=== PATIENT | male | born 1970 | race Two or more races ===

== ENCOUNTER 2020-11-25 09:43 | Emergency (ER) | payer SELFPAY ==
[2020-11-25 09:58] VITALS: BP 143/90; PULSE 71; RESP 18; TEMP 36.7; O2SAT 98; BMI 30.8
[2020-11-25 10:07] VITALS: RESP 18
--- NOTE | 2020-11-25 10:16 | US_ITS ---
EXAMINATION: US VENOUS ULTRASOUND WITH DOPPLER LOWER EXTREMITY, RIGHT CLINICAL INFORMATION: Right calf pain. COMPARISON: None TECHNIQUE: Ultrasound of the deep veins is performed from the hip to the calf with compression sonography and color and pulse Doppler assessment. Spectral analysis with color-flow imaging is performed. FINDINGS: There is normal venous compression and respiratory variation and augmented flow. The visualized common femoral vein, superficial femoral vein, profunda femoral vein, popliteal vein, and the trifurcation region shows no evidence of deep venous thrombosis. There is no significant popliteal fossa cyst. If the patient's symptoms persist, followup ultrasound in 5 days 7 days might be of value to exclude proximal propagation from a non-visualized calf vein. US/US venous duplex LE RT IMPRESSION: No DVT demonstrated in the right lower extremity.
[2020-11-25 10:27] LABS: Basophils Percent Auto 0.7 % (0-2); Eosinophils Absolute Auto 0.3 X10*3/uL (0.0-0.4); Eosinophils Percent Auto 4.5 % (0-4); Hematocrit 42.9 % (42-52); Hemoglobin 14.3 g/dl (14.0-18.0); Imm Gran Abs Auto 0.02 X10*3/uL (0.00-0.03); Imm Gran Pct Auto 0.3 % (0.0-0.4); Lymphocytes Absolute Auto 1.8 X10*3/uL (1.2-4.9); Lymphocytes Percent Auto 30.1 % (20-40); MANUAL DIFF FLAG NO; Mean Corpuscular HGB Conc 33.3 g/dl (31.0-36.0); Mean Corpuscular Hemoglobin 29.7 pg (27.0-33.0); Mean Platelet Volume 8.7 fL (9.4-12.4); Monocytes Absolute Auto 0.6 X10*3/uL (0.1-1.2); Monocytes Percent Auto 9.6 % (2-11); Neutrophils Absolute Auto 3.3 X10*3/uL (2.0-8.3); Neutrophils Percent Auto 54.8 % (45-73); Platelet Count 197 X10*3/uL (160-400); Red Blood Count 4.82 X10*6/uL (4.60-5.80); Red Cell Distribution Width 12.5 % (11.0-16.0); White Blood Count 5.9 X10*3/uL (4.8-10.8)
[2020-11-25 10:36] LABS: Prothrombin Time 11.9 SEC (10.8-13.0)
[2020-11-25 11:04] LABS: Anion Gap 13 (12-20); Blood Urea Nitrogen 18 mg/dL (9-16); Carbon Dioxide 26 mmol/L (22-29); Chloride 101 mmol/L (96-108); Creatinine Clr Calc Pharmacy 105.7; Estimated Glomerular Filt Rate > 60; Glucose Random 100 mg/dL (60-115); Potassium 4.4 mmol/l (3.3-5.1); Sodium 136 mmol/L (135-145)
--- NOTE | 2020-11-25 11:09 | ED.EXTPRO ---
HPI - Extremity Problem General Chief complaint: Extremity Problem Stated complaint: ?blood clot Time Seen by Provider: 11/25/20 09:52 Source: patient Mode of arrival: ambulatory Limitations: no limitations History of Present Illness HPI Narrative: 50yoM c PMHx of HTN and HLD presenting to the ED c c/o right calf pain for the past few days worse today. Denies any injuries. Denies recent travel, denies recent surgery or immobilization, denies estrogen uses, denies IV drug usage, denies hypercoagulation disorder. Denies any dizziness, headaches, nausea/vomiting, changes in vision, chest pain or shortness of breath, orthopnea or dyspnea on exertion or any other symptoms complaints or concerns at this time. Related Data Allergies Allergy/AdvReac Type Severity Reaction Status Date / Time No Known Allergies Allergy Unverified 08/12/20 15:15 [No Known Allergies*] Review of Systems Review of Systems: Constitutional : No Fever, No Chills ENT/Mouth : No Ear Pain, No Hoarseness, No sore throat Eyes: No Eye Pain, No Swelling, No Redness, No Foreign Body Cardiovascular : No Chest Pain, No SOB Respiratory : No Cough, No Dyspnea Gastrointestinal : No Nausea, No Vomiting, No Diarrhea, No abdominal Pain Genitourinary : No Dysuria, No Hematuria Musculoskeletal : + joint pain, No Myalgias, No Joint Swelling Skin : No Skin lacerations, No rash Neuro : No Weakness, No Numbness, No Paresthesias, No Loss of Consciousness, No Dizziness, No Headache Psych : No Anxiety/Panic, No Depression Heme/Lymph: no easy bruising, no Lymphadenopathy Endocrine : No Polyuria, No Polydipsia Yes all other systems are reviewed and are negative FOR[facility]LY [facility], [facility] Past Medical History Attestation statement: The following information was validated with the patient. Medical History High cholesterol Hypertension Social History Social History Advance Directives: No Advance Directives Information Provided: No Physical Exam Vital Signs: Vital Signs: Last Vital Signs Temp 98.0 F 11/25/20 09:58 Pulse 71 11/25/20 09:58 Resp 18 11/25/20 10:07 BP 143/90 H 12/31/20 09:58 Pulse Ox 98 11/25/20 09:58 Body Mass Index 30.8 vital signs have been reviewed as normal and appeared to be correct. Blood pressure normal. Heart rate normal. Respiration rate normal. Temperature normal. Oxygen saturation normal. Appearance: Alert. Oriented X3. No acute distress. Head: Normal external exam. Normocephalic. Eyes: PERRLA. EOMI. Conjunctiva and sclera normal. Eyelids normal. ENT: Pharynx normal. Uvula midline. Moist mucous membranes. Neck: Normal inspection. Neck supple. FROM. No adenopathy. No meningeal signs. CVS: Normal heart rate and rhythm. Heart sound normal. No murmurs noted. Pulses normal throughout. Respiratory: No respiratory distress. Painless inspiration. Breath sounds normal. No wheezes/rales/rhonchi noted. Chest nontender. No accessory muscle usage noted or decreased air movement noted. Back: Full range of motion noted. Skin: Skin warm and dry. Normal skin color. Normal skin turgor. No rashes/lesions/lacerations noted. Extremities: Patient has right calf tenderness with varicose veins noted otherwise No lower extremity edema. Left calf nontender. Extremities exhibit normal range of motion. Extremities otherwise nontender. Neuro: Oriented X 3. No motor deficit. No sensory deficit. Reflexes normal. Course Course Course Narrative: 10:16am - 50yoM c PMHx of HTN and HLD presenting to the ED c c/o right calf pain for the past few days worse today. - Concern for DVT vs varicose vein vs muscular strain - Plan: labs, US of RLE and re-evaluate Reevaluation(s) Reevaluation #1: - all labs within normal limits. Ultrasound of right lower extremity negative for any DVT or any other acute processes. I printed out and gave a copy to the patient instructed him to return if any new or worsening symptoms and if symptoms persist follow-up ultrasound in 5-7 days. Patient understands agrees with this plan. Patient declined Anaprox and Flexeril reports he has some at home. Therefore instructed to follow up with primary care provider as well. Patient's and agrees the plan. Time: 11:58 [facility] - Extremity (Nontraumatic) Medical Records Attestation: I reviewed the patient's medical records. Lab Data Result diagrams: 11/25/20 10:22 11/25/20 10:22 Labs: Lab Results 11/25/20 11/25/20 11/25/20 Range/Units 10:22 10:22 10:22 WBC 5.9 (4.8-10.8) X10*3/uL RBC 4.82 (4.60-5.80) X10*6/uL Hgb 14.3 (14.0-18.0) g/dl Hct 42.9 (42-52) % MCV 89.0 (80-98) fL MCH 29.7 (27.0-33.0) pg MCHC 33.3 (31.0-36.0) g/dl RDW 12.5 (11.0-16.0) % Plt Count 197 (160-400) X10*3/uL MPV 8.7 L (9.4-12.4) fL Immature Gran % (Auto) 0.3 (0.0-0.4) % Neut % (Auto) 54.8 (45-73) % Lymph % (Auto) 30.1 (20-40) % [place] % (Auto) 9.6 (2-11) % Eos % (Auto) 4.5 H (0-4) % Baso % (Auto) 0.7 (0-2) % Lymph # (Auto) 1.8 (1.2-4.9) X10*3/uL [place] # (Auto) 0.6 (0.1-1.2) X10*3/uL Eos # (Auto) 0.3 (0.0-0.4) X10*3/uL Baso # (Auto) 0.0 (0.0-0.2) X10*3/uL Abs Immat Gran (auto) 0.02 (0.00-0.03) X10*3/uL Absolute Neuts (auto) 3.3 (2.0-8.3) X10*3/uL Absolute Nucleated RBC 0.000 (0.0-0.012) X10*3/uL Nucleated RBC % (auto) 0.0 (0.0-0.2) /100WBC PT 11.9 (10.8-13.0) SEC INR 1.0 (0.9-1.1) Sodium 136 (135-145) mmol/L Potassium 4.4 (3.3-5.1) mmol/l Chloride 101 (96-108) mmol/L Carbon Dioxide 26 (22-29) mmol/L Anion Gap 13 (12-20) BUN 18 H (9-16) mg/dL Creatinine 0.95 (0.5-1.4) mg/dL Estim Creat Clear Calc 105.7 Estimated GFR > 60 Random Glucose 100 (60-115) mg/dL Calcium 9.0 (8.4-10.2) mg/dL Imaging Data rle us: Attestation: I personally reviewed and interpreted this imaging study as follows: Radiologist's impression: FINDINGS: There is normal venous compression and respiratory variation and augmented flow. The visualized common femoral vein, superficial femoral vein, profunda femoral vein, popliteal vein, and the trifurcation region shows no evidence of deep venous thrombosis. There is no significant popliteal fossa cyst. If the patient's symptoms persist, followup ultrasound in 5 days 7 days might be of value to exclude proximal propagation from a non-visualized calf vein. US/US venous duplex LE RT IMPRESSION: No DVT demonstrated in the right lower extremity. Discharge Plan Discharge Clinical Impression: Muscle strain of right lower leg Patient Disposition: Home, Self-Care Instructions: Muscle Strain (ED) Referrals: Ginette Selby MD [Primary Care Provider] - 2 days Print Language: Maori
== END 2020-11-25 12:14 | disposition home or self-care (01) ==
PROVIDERS: Physician Assistant Medical; Emergency Provider Emergency Medicine Emergency Medical Services; PCP Internal Medicine
DX: S86.911A Strain of unspecified muscle(s) and tendon(s) at lower leg level, right leg, initial encounter (principal); R60.0 Localized edema; X58.XXXA Exposure to other specified factors, initial encounter; Y93.9 Activity, unspecified; Y92.9 Unspecified place or not applicable; Y99.9 Unspecified external cause status
CPT/HCPCS: 36415; 80048; 85025; 85610; 93971; 99284

== ENCOUNTER 2021-02-02 07:39 | Outpatient (REF) | payer OTHER, SELFPAY ==
[2021-02-02 08:51] LABS: Alanine Aminotransferase 17 U/L (0-40); Albumin Level 4.6 g/dL (3.5-5.0); Alkaline Phosphatase 70 U/L (39-117); Anion Gap 11 (12-20); Aspartate Amino Transferase 15 U/L (5-37); Bilirubin Total 0.4 mg/dL (0.0-1.0); Blood Urea Nitrogen 16 mg/dL (9-16); Calcium 9.2 mg/dL (8.4-10.2); Carbon Dioxide 28 mmol/L (22-29); Chloride 104 mmol/L (96-108); Cholesterol 184 mg/dL; Estimated Glomerular Filt Rate > 60; Glucose Random 105 mg/dL (60-115); HDL Cholesterol 39 mg/dL; LDL Cholesterol Calculated 118 mg/dl; Potassium 5.2 mmol/L (3.3-5.1); Sodium 138 mmol/L (135-145); Total Protein 7.1 g/dL (6.5-8.0); Triglycerides 137 mg/dL
== END 2021-02-02 07:40 | disposition home or self-care (01) ==
LOC: HO.LAB 07:39
PROVIDERS: PCP Internal Medicine; Visit Provider Internal Medicine
DX: E78.00 Pure hypercholesterolemia, unspecified (principal); I10 Essential (primary) hypertension; M47.22 Other spondylosis with radiculopathy, cervical region; Z68.31 Body mass index [BMI] 31.0-31.9, adult
CPT/HCPCS: 36415; 80053; 80061

== ENCOUNTER 2021-10-17 12:30 | Outpatient (REF) | payer OTHER, SELFPAY ==
[2021-10-17 13:56] LABS: MANUAL DIFF FLAG NO
[2021-10-17 14:05] LABS: Basophils Percent Auto 0.4 % (0-2); Eosinophils Absolute Auto 0.1 X10*3/uL (0.0-0.4); Eosinophils Percent Auto 1.1 % (0-4); Hematocrit 43.9 % (42.0-52.0); Hemoglobin 14.8 g/dl (14.0-18.0); Imm Gran Abs Auto 0.02 X10*3/uL (0.00-0.03); Imm Gran Pct Auto 0.4 % (0.0-0.4); Lymphocytes Absolute Auto 1.5 X10*3/uL (1.2-4.9); Lymphocytes Percent Auto 26.5 % (20-40); Mean Corpuscular HGB Conc 33.7 g/dl (31.0-36.0); Mean Corpuscular Hemoglobin 29.8 pg (27.0-33.0); Mean Corpuscular Volume 88.3 fL (80.0-98.0); Mean Platelet Volume 9.3 fL (9.4-12.4); Monocytes Absolute Auto 0.3 X10*3/uL (0.1-1.2); Monocytes Percent Auto 5.5 % (2-11); Neutrophils Absolute Auto 3.7 x10*3/uL (2.0-8.3); Neutrophils Percent Auto 66.1 % (45-73); Platelet Count 215 X10*3/uL (160-400); Red Blood Count 4.97 X10*6/uL (4.60-5.80); Red Cell Distribution Width 12.6 % (11.0-16.0); White Blood Count 5.6 X10*3/uL (4.8-10.8)
[2021-10-17 14:32] LABS: Alanine Aminotransferase 18 U/L (0-40); Albumin Level 4.6 g/dL (3.5-5.0); Alkaline Phosphatase 61 U/L (39-117); Anion Gap 13 (12-20); Aspartate Amino Transferase 15 U/L (5-37); Bilirubin Total 0.8 mg/dL (0.0-1.0); Blood Urea Nitrogen 17 mg/dL (9-16); Calcium 9.4 mg/dL (8.4-10.2); Carbon Dioxide 27 mmol/L (22-29); Chloride 103 mmol/L (96-108); Cholesterol 230 mg/dL; Estimated Glomerular Filt Rate > 60; Glucose Fasting 102 mg/dL (60-99); HDL Cholesterol 48 mg/dL; LDL Cholesterol Calculated 157 mg/dl; Potassium 4.9 mmol/L (3.3-5.1); Sodium 138 mmol/L (135-145); Total Protein 7.4 g/dL (6.5-8.0); Triglycerides 126 mg/dL
== END 2021-10-17 12:31 | disposition home or self-care (01) ==
LOC: HO.10HDL 12:30
PROVIDERS: Visit Provider Internal Medicine
DX: Z00.00 Encounter for general adult medical examination without abnormal findings (principal); Z13.31 Encounter for screening for depression; E78.00 Pure hypercholesterolemia, unspecified; I10 Essential (primary) hypertension
CPT/HCPCS: 36415; 80053; 80061; 85025

== ENCOUNTER 2022-09-28 08:27 | Outpatient (REF) | payer OTHER, SELFPAY ==
[2022-09-28 10:36] LABS: MANUAL DIFF FLAG NO
[2022-09-28 10:40] LABS: Basophils Percent Auto 0.7 % (0-2); Eosinophils Absolute Auto 0.2 X10*3/uL (0.0-0.4); Eosinophils Percent Auto 3.7 % (0-4); Hematocrit 45.5 % (42.0-52.0); Hemoglobin 15.5 g/dl (14.0-18.0); Imm Gran Abs Auto 0.02 X10*3/uL (0.00-0.03); Imm Gran Pct Auto 0.3 % (0.0-0.4); Lymphocytes Percent Auto 33.4 % (20-40); Mean Corpuscular HGB Conc 34.1 g/dl (31.0-36.0); Mean Corpuscular Hemoglobin 30.6 pg (27.0-33.0); Mean Corpuscular Volume 89.7 fL (80.0-98.0); Mean Platelet Volume 8.9 fL (9.4-12.4); Monocytes Absolute Auto 0.6 X10*3/uL (0.1-1.2); Monocytes Percent Auto 9.5 % (2-11); Neutrophils Absolute Auto 3.2 x10*3/uL (2.0-8.3); Neutrophils Percent Auto 52.4 % (45-73); Platelet Count 216 X10*3/uL (160-400); Red Blood Count 5.07 X10*6/uL (4.60-5.80); Red Cell Distribution Width 12.8 % (11.0-16.0)
[2022-09-28 10:56] LABS: Alanine Aminotransferase 31 U/L (0-40); Albumin Level 4.7 g/dL (3.5-5.0); Alkaline Phosphatase 70 U/L (39-117); Anion Gap 16 (12-20); Aspartate Amino Transferase 28 U/L (5-37); Bilirubin Total 1.3 mg/dL (0.0-1.0); Blood Urea Nitrogen 17 mg/dL (9-16); Calcium 9.5 mg/dL (8.4-10.2); Carbon Dioxide 25 mmol/L (22-29); Chloride 100 mmol/L (96-108); Cholesterol 277 mg/dL; Estimated Glomerular Filt Rate > 60; Glucose Fasting 102 mg/dL (60-99); HDL Cholesterol 68 mg/dL; LDL Cholesterol Calculated 163 mg/dl; Potassium 4.8 mmol/L (3.3-5.1); Sodium 136 mmol/L (135-145); Total Protein 7.5 g/dL (6.5-8.0); Triglycerides 232 mg/dL
[2022-09-28 11:13] LABS: Prostate Specific Antigen Scr 0.71 ng/mL (<0.05-4.0)
== END 2022-09-28 08:28 | disposition home or self-care (01) ==
LOC: HO.10HDL 08:27
PROVIDERS: Visit Provider Internal Medicine
DX: Z00.00 Encounter for general adult medical examination without abnormal findings (principal); K12.0 Recurrent oral aphthae; I10 Essential (primary) hypertension; E78.00 Pure hypercholesterolemia, unspecified; Z12.5 Encounter for screening for malignant neoplasm of prostate
CPT/HCPCS: 36415; 80053; 80061; 84153; 85025

== ENCOUNTER 2022-12-06 09:32 | Outpatient (REF) | payer OTHER, SELFPAY ==
[2022-12-06 11:57] LABS: Alanine Aminotransferase 31 U/L (0-40); Albumin Level 4.7 g/dL (3.5-5.0); Alkaline Phosphatase 72 U/L (39-117); Anion Gap 15 (12-20); Aspartate Amino Transferase 25 U/L (5-37); Bilirubin Total 0.9 mg/dL (0.0-1.0); Blood Urea Nitrogen 14 mg/dL (9-16); Calcium 9.9 mg/dL (8.4-10.2); Carbon Dioxide 27 mmol/L (22-29); Chloride 101 mmol/L (96-108); Cholesterol 165 mg/dL; Estimated Glomerular Filt Rate > 60; Glucose Fasting 102 mg/dL (60-99); HDL Cholesterol 51 mg/dL; LDL Cholesterol Calculated 83 mg/dl; Potassium 5.1 mmol/L (3.3-5.1); Sodium 138 mmol/L (135-145); Total Protein 7.3 g/dL (6.5-8.0); Triglycerides 157 mg/dL
[2022-12-09 05:29] LABS: TS Negative Control Passed; TS Panel A 1; TS Panel B 0; TS Positive Control Passed; TSpotTB Negative (Negative)
== END 2022-12-06 09:33 | disposition home or self-care (01) ==
LOC: HO.10HDL 09:32
PROVIDERS: Visit Provider Internal Medicine
DX: Z11.1 Encounter for screening for respiratory tuberculosis (principal); E78.00 Pure hypercholesterolemia, unspecified; I10 Essential (primary) hypertension
CPT/HCPCS: 36415; 80053; 80061; 86481

== ENCOUNTER 2023-03-28 08:01 | Outpatient (REF) | payer OTHER, SELFPAY | END 2023-03-28 08:02 | disposition home or self-care (01) | LOC: HO.HOSX 08:01 | PROVIDERS: Visit Provider Orthopaedic Surgery | DX: Z13.89 Encounter for screening for other disorder (principal) ==

== ENCOUNTER → 2023-04-24 13:59 | Outpatient (BNVA) | payer OTHER, SELFPAY | PROVIDERS: PCP Internal Medicine; Visit Provider Orthopaedic Surgery | DX: M65.341 Trigger finger, right ring finger (principal) | CPT/HCPCS: 20550; J1100 ==

== ENCOUNTER 2023-06-29 09:18 | Outpatient (REF) | payer OTHER, SELFPAY ==
--- NOTE | ~2023-06-29 | FL_ITS ---
EXAMINATION: FL BARIUM SWALLOW CLINICAL INFORMATION: Dysphagia, reflux. COMPARISON: None available. TECHNIQUE: Barium swallow examination is performed using fluoroscopic evaluation in addition to multiple fluoroscopic spot views. The patient is imaged both upright and prone and using both thick and thin sulfate along with effervescent granules. Fluoroscopy time: 0.8 minutes DAP: 45.479 Gycm2 Images: 49 FINDINGS: Following oral administration of thick barium, barium coated thick turkey as solid food there is normal propagation all of bolus from the oral cavity through the pharynx, esophagus into stomach without any evidence of obstruction, narrowing or stricture. On placing patient prone lying and oral administration of thin barium there is normal distention of esophagus without any intraluminal filling defect or extraluminal compression. The GE junction appears normal. FL/FL barium swallow IMPRESSION: Unremarkable upper GI air-contrast study.
== END 2023-06-29 09:19 | disposition home or self-care (01) ==
LOC: HO.XRAY 09:18
PROVIDERS: PCP Internal Medicine; Visit Provider Otolaryngology
DX: R13.10 Dysphagia, unspecified (principal); K21.9 Gastro-esophageal reflux disease without esophagitis
CPT/HCPCS: 74220

== ENCOUNTER → 2023-06-29 09:30 | Outpatient (BNV) | payer OTHER, SELFPAY | PROVIDERS: PCP Internal Medicine; Visit Provider Radiology Diagnostic Radiology | DX: K21.9 Gastro-esophageal reflux disease without esophagitis (principal) | CPT/HCPCS: 74221 ==

== ENCOUNTER 2023-09-03 13:02 | Outpatient (REF) | payer OTHER, SELFPAY | END 2023-09-03 13:03 | disposition home or self-care (01) | LOC: HO.LAB 13:02 | PROVIDERS: PCP Internal Medicine; Visit Provider Internal Medicine | DX: Z00.00 Encounter for general adult medical examination without abnormal findings (principal); E78.00 Pure hypercholesterolemia, unspecified; I10 Essential (primary) hypertension; N40.0 Benign prostatic hyperplasia without lower urinary tract symptoms; Z12.5 Encounter for screening for malignant neoplasm of prostate | CPT/HCPCS: 36415; 80053; 80061; 84153; 84443 ==

== ENCOUNTER 2024-04-03 11:24 | Outpatient (REF) | payer OTHER, SELFPAY ==
[2024-04-03 12:51] LABS: Alanine Aminotransferase 24 U/L (0-40); Albumin Level 4.8 g/dL (3.5-5.0); Alkaline Phosphatase 64 U/L (39-117); Anion Gap 13 (12-20); Aspartate Amino Transferase 19 U/L (5-37); Bilirubin Total 0.8 mg/dL (0.0-1.0); Blood Urea Nitrogen 15 mg/dL (9-16); Calcium 9.9 mg/dL (8.4-10.2); Carbon Dioxide 25 mmol/L (22-29); Chloride 102 mmol/L (96-108); Cholesterol 163 mg/dL (<200); Estimated Glomerular Filt Rate > 60; Glucose Random 89 mg/dL (60-115); HDL Cholesterol 45 mg/dL (>40); LDL Cholesterol Calculated 91 mg/dL (<100); Potassium 4.3 mmol/L (3.3-5.1); Sodium 136 mmol/L (135-145); Total Protein 7.9 g/dL (6.5-8.0); Triglycerides 137 mg/dL (<150)
== END 2024-04-03 11:25 | disposition home or self-care (01) ==
LOC: HO.LAB 11:24
PROVIDERS: PCP Internal Medicine; Visit Provider Internal Medicine
DX: E78.00 Pure hypercholesterolemia, unspecified (principal); I10 Essential (primary) hypertension; J37.0 Chronic laryngitis; Z68.31 Body mass index [BMI] 31.0-31.9, adult
CPT/HCPCS: 36415; 80053; 80061

== ENCOUNTER 2024-05-26 12:32 | Outpatient (REF) | payer OTHER, SELFPAY ==
[2024-05-26 13:19] LABS: Alanine Aminotransferase 21 U/L (0-40); Albumin Level 4.8 g/dL (3.5-5.0); Alkaline Phosphatase 65 U/L (39-117); Anion Gap 15 (12-20); Aspartate Amino Transferase 20 U/L (5-37); Bilirubin Total 0.7 mg/dL (0.0-1.0); Blood Urea Nitrogen 14 mg/dL (9-16); Calcium 9.9 mg/dL (8.4-10.2); Carbon Dioxide 26 mmol/L (22-29); Chloride 101 mmol/L (96-108); Cholesterol 234 mg/dL (<200); Estimated Glomerular Filt Rate > 60; Glucose Random 91 mg/dL (60-115); HDL Cholesterol 48 mg/dL (>40); LDL Cholesterol Calculated 157 mg/dL (<100); Potassium 4.6 mmol/L (3.3-5.1); Sodium 137 mmol/L (135-145); Total Protein 7.8 g/dL (6.5-8.0); Triglycerides 146 mg/dL (<150)
[2024-05-26 13:37] LABS: Prostate Specific Antigen 0.89 ng/mL (<0.05-4.0)
[2024-05-26 15:07] LABS: Creatinine Urine 68.79 mg/dL; Microalbum/Creatinine Ratio Ur 8.7 ug/mg cr (<30)
== END 2024-05-26 12:33 | disposition home or self-care (01) ==
LOC: HO.LAB 12:32
PROVIDERS: PCP Hospitalist; Visit Provider Hospitalist
DX: I10 Essential (primary) hypertension (principal); Z12.5 Encounter for screening for malignant neoplasm of prostate
CPT/HCPCS: 36415; 80053; 80061; 82043; 82570; 84153

== ENCOUNTER 2024-07-07 13:13 | Outpatient (RCR) | payer OTHER, SELFPAY ==
--- NOTE | 2024-07-18 14:38 | MHC.SP.ADU ---
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 Assistive Devices in use: Glasses/Contacts Past Speech Language Therapy: Bernard reports he had seen an RETAIL SALES TEAMMATE recently at [facility], however he discontinued those services for this location given it's proximity to his Home and Work Other Therapies Seen in Current Calendar Year: Speech Therapy Unknown Swallowing History: Dysphagia Specific: Other Comments: Pt had history of Dysphagia with Barium Swallow insignificant. Pt reports drinking Apple Cider Vinegar daily which as provided gastic relief. He is concerned if the acidity of the vinegar may have led to his problem. RETAIL SALES TEAMMATE deferred to the referring provider. Pre-eval Risk for Aspiration: Weak Voice Pre-evaluation Dietary Consistencies: Regular Pre-eval Liquid Intake: Thin Pre-eval Medication Intake: Whole with Liquid Reported Speech, Language, Cognition difficulties: Voice Bernard completed the Voice Related Quality of Life Questionnaire (V-RQoL), a self-reported measure of a patient's perception of their voice problems. Overall he scored a total of 23 points which lands in the Good Range (n=21-25). He reports difficulty being understood, particularly in noisy environments. He is concerned if his voice will impact his ability to work. Assessment Informal Voice Assessment: Voice Loudness: Moderately Soft/Quiet Voice Nasal Resonance: Normal Voice Oral Resonance: Normal Voice Phonatory-based Quality: Breathy Hoarse Voice Pitch: Limited Variation Voice Other Observations: Clinical Impression: Impaired Clinicial Observations: Bernard participated in an instrumental analysis of voice using the Visipitch 3250 hardware and the Multidimensional Voice Protocol (MDVP). The MDVP requires the patient to produce a sustained vowel (/a/) for 8 seconds. The analysis yields four different parameters that can be compared to established norms by gender. Relative Average Perturbation (RAP) gives an evaluation of the variability of the pitch period within the within the analyzed voice sample at smoothing factor 3 periods. Shimmer Percent (Meghna) gives an evaluation of the short term) variability of the sben-km-wwem variability of the hahv-gi-srpw amplitudewithin the analyzed voice sample. It represents the relative qefeeb-mp-jqsjos (very short term) variability of the ppua-zr-kpku amplitude. Aduey-av-Cstsqflm Ratio (NHR) is an average ration of energy of the inharmonic components in the range 70-4200 Hz, to the harmonic components energy in the range 70-4200 Hz. It is a general evaluation of the noise presence in the analyzed signal (such as amplitude and harmonic Ratio is an average ratio frequency variations, turbulence noise, harmonic components, and/or voice breaks). Voice Turbulence Index (VTI) is a ratio of the spectral inharmonic high-frequency energy in the range 2847-0053 Hz, to the spectral obtained from a single 1024-point block of signal where the influence of the frequency and amplitude variations, voice breaks, and sub-harmonic components are minimal. VTI measures the relative energy level of high-frequency noise. It mostly correlates with the turbulence caused by incomplete or loose adduction of the vocal folds. Bernard?s results are tabled below: NAME VALUE NORM(m) STD(m) THRESHOLD RAP 1.813 0.345 0.333 0.68 Meghna 10.272 2.523 0.997 3.81 NHR 0.256 0.122 0.014 0.19 VTI 0.222 0.052 0.016 0.061 [facility] scores on these measures are all well above the threshold of greater than one Standard Deviation (STD) above the Norm. This instrumental analysis confirms what the patient and clinician perceptually section forest fire warden as an impair voice profile. As he is pre-operative, he can be provided this analysis post-surgery and post-treatment to assess progress. Impressions and Recommendations Summary: Impact on Daily Function/Activity Limitations: Daily Activities: Moderate Interpersonal Interactions: Mild Education: None Employment: Moderate Community: Mild Prognosis for Improvement: Good Recommendation for Speech Therapy: Outpatient Speech Therapy Frequency/Duration: 1 x week x 12 weeks Date Range for Service Requested: 07/07/24 - 11/06/24 Time to Reassess: PRN Residential Goals: LTG1: Repeat instrumental assessment will demonstrate improvements to his voice. LTG2: Repeat V-RQoL will demonstrate improved self-assessment of voice. Short Term Goals: Goal # : STG1: Bernard will demonstrate easy-onset speech at the sentence level with >80% accuracy after a training period. Goal Status: New Goal Goal# : STG2: Bernard will verbalize back vocal hygiene techniques with >80% accuracy independently. Goal Status: New Goal Goal # : STG3: Bernard will report compliance to HEP on a weekly basis. Goal Status: New Goal Recommended Referrals to be Discussed with Primary Care Provider: ENT Consult Follow-up with referring provider. Patient Education: Completed: Yes Patient/Caregiver Education: Described Results of Evaluation Patient expressed understanding of evaluation Patient agrees with goals and treatment plan Patient requires further education on strategies Transfusion Nurse Clinican/Clinical Fellow: No Supervisory Statement: N/A Speech Language Pathologist: Bj Iglesias M.A., CCC-RETAIL SALES TEAMMATE
== END 2025-01-01 15:02 | disposition home or self-care (01) ==
LOC: HO.SH 13:13
PROVIDERS: PCP Ophthalmology; Visit Provider Otolaryngology
DX: J38.3 Other diseases of vocal cords (principal)
CPT/HCPCS: 92524

== ENCOUNTER 2024-07-22 14:20 | Outpatient (REF) | payer OTHER, SELFPAY ==
--- NOTE | ~2024-07-22 | CT_ITS ---
EXAMINATION: CT SOFT TISSUE NECK WITH CONTRAST CLINICAL INFORMATION: Malignant neoplasm the glottis COMPARISON: None. TECHNIQUE: Following the administration of 60 mL of Omnipaque 300 intravenous contrast, helical imaging was performed in the axial plane with generation of coronal and sagittal reformatted images. This CT examination was performed using dose optimization techniques as appropriate, variously including the following: *Automated exposure control. *Adjustment of mA and/or kV according to patient size (this includes techniques or standardized protocols for targeted exams where dose is matched to indication/reason for exam; i.e. extremities or head). *Use of iterative reconstruction technique. DLP: 302 mGy-cm. FINDINGS: The fat planes of the skull base and soft tissues of the nasopharynx are unremarkable. Trace mucosal thickening in the right maxillary sinus alveolar recess. The temporomandibular joints are normal. Horizontally impacted left posterior mandibular molar. The oral cavity and pharyngeal mucosal space are normal. The laryngeal structures are apposed, precluding diagnostic assessment of reported history of primary glottic neoplasm. The subglottic airway is normal. The submandibular and parotid glands are normal. The thyroid gland is normal. No pathologic size criteria or morphologically suspicious cervical chain lymph nodes. The partially visualized lung apices are clear. Grossly preserved opacification of the major neck vessels. Dehiscent right jugular bulb into the hypotympanum can be correlated clinically for right-sided pulsatile tinnitus. No suspicious osseous lesion. Reversal of the normal cervical lordosis. A left foraminal disc osteophyte protrusion in conjunction with left uncovertebral joint hypertrophy at C6-C7 contributes to severe left neural foraminal narrowing. Otherwise mild cervical spondylosis. The imaged portions of the brain parenchyma are unremarkable. Possible broad-based medially projecting extradural aneurysm arising from the left cavernous ICA measuring 3 mm versus ectasia of the vessel (image 62, series 3), which would be better diagnostically assessed on CTA. CT/CT soft tissue neck w IV con IMPRESSION: 1. The laryngeal structures are apposed, precluding diagnostic assessment of reported history of primary glottic neoplasm. No cervical lymphadenopathy. 2. Possible broad-based 3 mm left cavernous ICA extradural aneurysm versus ectasia, which would be better diagnostically assessed on CTA. 3. Dehiscent right jugular bulb into the hypotympanum can be correlated clinically for right-sided pulsatile tinnitus. 4. A left foraminal disc osteophyte protrusion in conjunction with left uncovertebral joint hypertrophy at C6-C7 contributes to severe left neural foraminal narrowing. Electronically signed by: Renetta Perez MD 07/23/2024 11:06 AM EDT
[2024-07-22] MEDS: iohexoL 350 MG/ML 100 ML INFUS..BTL 60 ML IV (15:04)
== END 2024-07-22 14:21 | disposition home or self-care (01) ==
LOC: HO.CT 14:20
PROVIDERS: PCP Internal Medicine; Visit Provider Otolaryngology
DX: C32.0 Malignant neoplasm of glottis (principal)
CPT/HCPCS: 70491; 82565; Q9967

== ENCOUNTER 2024-09-15 07:42 | Outpatient (REF) | payer OTHER, SELFPAY ==
[2024-09-15 08:31] LABS: Blood Urea Nitrogen 15 mg/dL (9-16); Estimated Glomerular Filt Rate > 60
== END 2024-09-15 07:43 | disposition home or self-care (01) ==
LOC: HO.LAB 07:42
PROVIDERS: PCP Hospitalist; Visit Provider Otolaryngology
DX: Z01.812 Encounter for preprocedural laboratory examination (principal)
CPT/HCPCS: 36415; 82565; 84520

== ENCOUNTER 2024-09-17 08:37 | Outpatient (REF) | payer OTHER, SELFPAY ==
--- NOTE | ~2024-09-17 | CT_ITS ---
EXAMINATION: CT ANGIOGRAM BRAIN, HEAD CLINICAL INFORMATION: Abnormal findings on skull and head COMPARISON: None available. TECHNIQUE: Test bolus sequences followed by intravenous administration of 75 mL of Omnipaque 350 intravenous contrast. Helical imaging was performed in the axial plane from the skull base to the vertex. Delayed postcontrast imaging of the head was also performed. The data was processed at the lead technologist in cytogenetics workstation for generation of MIP sequences. Three-dimensional volume rendered reformatted images were also generated at an offline 3-D workstation. The degree of stenosis determined by NASCET criteria. This CT examination was performed using dose optimization techniques as appropriate, variously including the following: *Automated exposure control *Adjustment of mA and/or kV according to patient size (this includes techniques or standardized protocols for targeted exams where dose is matched to indication/reason for exam; i.e. extremities or head) *Use of iterative reconstruction technique DLP: 2344 mGy-cm FINDINGS: BRAIN: No acute intracranial hemorrhage or infarct. The harp-white matter differentiation is preserved. No midline shift or hydrocephalus. No acute extra-axial fluid collections. The osseous structures are unremarkable. Epidermal inclusion cyst along the left frontal scalp tissues. No orbital pathology. The paranasal sinuses and mastoid air cells are clear. CTA HEAD: Anterior circulation: The petrous, cavernous, and supraclinoid segments of the internal carotid arteries are patent bilaterally. The major branches of the anterior and middle cerebral arteries as well as anterior communicating artery complex are patent. No large vessel occlusion, saccular aneurysm, or dissection. Posterior circulation: The intracranial vertebral arteries are patent bilaterally. The basilar artery is normal in course and caliber. The posterior cerebral and superior cerebellar arteries arise normally from the basilar summit. No aneurysm. On delayed imaging, the venous structures demonstrate normal contrast opacification. No filling defect. No abnormal intraparenchymal enhancement. CT/CT angio head IMPRESSION: No acute intracranial hemorrhage or infarct. No large vessel occlusion, saccular aneurysm, or dissection. Electronically signed by: Brianna Hair MD 09/17/2024 11:27 AM EDT
[2024-09-17] MEDS: iohexoL 350 MG/ML 100 ML INFUS..BTL 75 ML IV (09:14)
== END 2024-09-17 08:38 | disposition home or self-care (01) ==
LOC: HO.CT 08:37
PROVIDERS: PCP Internal Medicine; Visit Provider Otolaryngology
DX: R93.0 Abnormal findings on diagnostic imaging of skull and head, not elsewhere classified (principal)
CPT/HCPCS: 70496; Q9967

== ENCOUNTER 2025-09-10 08:12 | Outpatient (REF) | payer OTHER, SELFPAY ==
--- OUTSIDE RECORDS SUMMARY | 2025-09-10 08:21 | XMS_ITS | Clinical Summary ---
Author Organization [facility] Address [address] [phone] Phone Care Team Providers Care Registered Nurse Maternal Child Name Role Phone Ginette Selby MD Primary Care Provider Immunizations Immunization Administration Dates Next Due COVID-19 (Pre-09/17) Pfizer Vaccine, mRNA, PF 01/19/2022,03/05/2021,02/10/2021 Influenza Quadrivalent Preservative Free IM 07/28 Social History Tobacco Use Types Packs/Day Years Used Date Smoking Tobacco: Never Assessed Education Answer Date Recorded Are you interested in more education? Not on christine e 03/23/2023 Are you concerned about learning? Not on file 03/23/2023 No 03/23/2023 No 03/23/2023 Digital Access Answer Date Recorded No 04/23/2023 No 04/23/2023 No 04/23/2023 Reliable internet access at home? Not on file 04/23/2023 Device with a working camera? Not on file Sex and Gender Information Value Date Recorded Sex Assigned at Not on file Legal Sex Male 4:14 PM EST Gender Identity Not on file Sexual Orientation Not on file Plan of Treatment Health Maintenance Due Date Last Done Comments LIPID PANEL 1970 DEPRESSION SCREENING 1982 SMOKING Hx and SMOKELESS TOBACCO SCREENING 1983 HEPATITIS C SCREENING 1988 HIV ONE-TIME SCREENING (18-65 YEARS) 1988 COLOGUARD 2015 COLONOSCOPY 2015 COLORECTAL CANCER SCREENING 2015 FIT TEST 2015 FOBT 2015 SIGMOIDOSCOPY 2015 VIRTUAL COLONOSCOPY 2015 PNEUMOCOCCAL VACCINES (50+ years) (1 of 1 - PCV) 2020 ZOSTER VACCINES (1 of 2) 2020 INFLUENZA VACCINE (#1) 2025 , 10/01/2019, 09/11/2018, Additional history exists COVID-19 VACCINE ( season) 2025 01/19/2022, 08/16/2021, 03/05/2021, Additional history exists Adult Td,Tdap Booster 09/22/2031 09/22/2021 RSV VACCINE (1 - 1-dose 75+ series) 2045 HEPATITIS A VACCINES Aged Out No long er eligible based on patient's age to complete this topic HIB VACCINES Aged Out No longer eligi ble based on patient's age to complete this topic MENINGOCOCCAL VACCINES (ACWY) Aged Out No longer eligible based on patient's age to complete this topic MENINGOCOCCAL VACCINES (B) Aged Out N o longer eligible based on patient's age to complete this topic Medical Devices Not [place] [id number] [facility] [employer] FAMILY Care Teams Registered Nurse Maternal Child Relationship Specialty Start Date End Date Ginette Selby MD [address] [place] [phone] PCP - General 12/08/20 Additional Source Comments The information contained in this document represents components of the legal health record. It is not the complete legal health record.[facility]
--- OUTSIDE RECORDS SUMMARY | 2025-09-10 08:21 | XMS_ITS | Patient Health Record ---
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 Name Role Phone KYRA SANDERS Primary Care Provider [phone] Allergies Allergen (clinical drug ingredient) Drug/Non Drug Allergy documented on EMR Reaction Allergy Type Onset Date Status lisinopril Lisinopril cough Drug Allergy Activ e Reason For Referral No Information Medications Medication SIG (Take, Route, Frequency, Duration) Notes Start Date End Date Status Berberine Complex No t-Taking Yeast Formula Not-Ta radha [place] Extract N ot-Taking Lisinopril 20 MG 1 tablet by mouth on ce a day Orally Once a day; Duration: 90 days Active Atorvastatin Calcium 10 MG 1 tablet Orally Once a day; Duration: 30 days 06/30/2024 Active Immunizations Vaccine Route Administration Date Status Comme nts COVID 19 Pfizer Unknown 02/10/2021 Administered COVID 19 Pfizer Unknown 03/05/2021 Administered COVID Moderna Unknown 08/16/2021 Administered COVID Pfizer Unknown 01/19/2022 Administered Fluzone QD Unknown 09/28/2015 Administered Fluzone QD Unknown 10/17/2016 Administered Fluzone QD Unknown 11/23/2017 Administered Fluzone QD Unknown 09/11/2018 Administered Fluzone QD Unknown 10/01/2019 Administered Fluzone QD Unknown 11/07/2022 Administered Fluzone QD Unknown 09/12/2023 Administered TDAP Unknown 09/22/2021 Administered Social History Tobacco Use: Social History Observation Description Date Details (start date - stop date) Former Smoker NA - NA Tobacco Use/Smoking Question Answer Notes Are you a former smoker How long has it been since you last smoked? > 10 years Section Notes: Non smoker Social drinks Problems Problem Type SNOMED Code ICD Code Onset Dates Problem Status W/U Status Risk Notes Problem Obesity due to excess calories (382470666) Other obesity due to excess calories (E66.09) Active confirmed Problem Mixed hyperlipidemia (477408559) Mixed hyperlipidemia (E78.2) Active confirmed Problem Dysphonia (59654637) Dysphonia (R49.0) Active confirmed Problem Essential hypertension (41829234) Essential (primary) hypertension (I10) Active confirmed Vital Signs Heart Rate 65 /min 12/29/2024 Temperature 96.4 degrees Fahrenheit 12/29/2024 Oximetry 96 % 12/29/2024 Blood pressure diastolic 70 mm Hg 12/29/2024 Height 5'9'' in 12/29/2024 Blood pressure systolic 105 mm Hg 12/29/2024 Weight 202.6 lbs 12/29/2024 BMI 29.92 kg/m2 12/29/2024 Encounters Encounter Location Date Provider Diagnosis [address] [place] [address] 12/29/2024 RAE GUL Mixed hyperlipidemia E78.2 ; Essential (primary) hypertension I10 ; Other obesity due to excess calories E66.09 ; Dysphonia R49.0 and Encounter for screening for malignant neoplasm of prostate Z12.[address] [place] [address] 10/22/[address] [place] [address] 02/16/2025 RAE GUL Mixed hyperlipidemia E78.[address] [place] [address] 09/01/[address] [place] [address] 11/24/[address] [place] [address] 11/24/[address] [place] [address] 04/07/2025 RAE GUL Mixed hyperlipidemia E78.[address] [place] [address] 08/14/2025 KYRA TOMMY [facility] [address] [place] [address] 08/14/2025 KYRA SANDERS Assessments Encounter Date Diagnosis (ICD Code) Assessment Notes Treatment Notes Treatment Clinical Notes Section Notes 12/29/2024 Mixed hyperlipidemia (ICD-10 - E78.2) Mr. Wheeler is a 54-year-old gentleman with hypertension here for BP f/up. She has lost 14 pounds since his last visit, and her current weight is approximately 216 lbs. He was initially started on tovastatin 10 mg, but experienced significant foot swelling on the first day of use. Plan as follows: Hypertension: Continue lisinopril 20 mg daily. Advise the patient to monitor blood pressure both at home and at work. 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 Hyperlipidemia: Initiate atorvastatin 10 mg at night to manage cholesterol levels. Monitor for any adverse reactions, especially swelling, and adjust therapy as necessary. Dysphonia: Continue follow-up with ENT regarding the progress post-laser treatment. Weight Management and Lifestyle: Encourage increased physical activity and adherence to a healthy diet. Target weight is approximately 175 lbs. Schedule a complete physical examination and review all lab results in 6 months. 12/29/2024 Essential (primary) hypertension (ICD-10 - I10) Mr. Wheeler is a 54-year-old gentleman with hypertension here for BP f/up. She has lost 14 pounds since his last visit, and her current weight is approximately 216 lbs. He was initially started on tovastatin 10 mg, but experienced significant foot swelling on the first day of use. Plan as follows: Hypertension: Continue lisinopril 20 mg daily. Advise the patient to monitor blood pressure both at home and at work. 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 Hyperlipidemia: Initiate atorvastatin 10 mg at night to manage cholesterol levels. Monitor for any adverse reactions, especially swelling, and adjust therapy as necessary. Dysphonia: Continue follow-up with ENT regarding the progress post-laser treatment. Weight Management and Lifestyle: Encourage increased physical activity and adherence to a healthy diet. Target weight is approximately 175 lbs. Schedule a complete physical examination and review all lab results in 6 months. 02/16/2025 Mixed hyperlipidemia (ICD-10 - E78.2) 04/07/2025 Mixed hyperlipidemia (ICD-10 - E78.2) 12/29/2024 Other obesity due to excess calories (ICD-10 - E66.09) Mr. Wheeler is a 54-year-old gentleman with hypertension here for BP f/up. She has lost 14 pounds since his last visit, and her current weight is approximately 216 lbs. He was initially started on tovastatin 10 mg, but experienced significant foot swelling on the first day of use. Plan as follows: Hypertension: Continue lisinopril 20 mg daily. Advise the patient to monitor blood pressure both at home and at work. 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 Hyperlipidemia: Initiate atorvastatin 10 mg at night to manage cholesterol levels. Monitor for any adverse reactions, especially swelling, and adjust therapy as necessary. Dysphonia: Continue follow-up with ENT regarding the progress post-laser treatment. Weight Management and Lifestyle: Encourage increased physical activity and adherence to a healthy diet. Target weight is approximately 175 lbs. Schedule a complete physical examination and review all lab results in 6 months. 12/29/2024 Dysphonia (ICD-10 - R49.0) Mr. Wheeler is a 54-year-old gentleman with hypertension here for BP f/up. She has lost 14 pounds since his last visit, and her current weight is approximately 216 lbs. He was initially started on tovastatin 10 mg, but experienced significant foot swelling on the first day of use. Plan as follows: Hypertension: Continue lisinopril 20 mg daily. Advise the patient to monitor blood pressure both at home and at work. 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 Hyperlipidemia: Initiate atorvastatin 10 mg at night to manage cholesterol levels. Monitor for any adverse reactions, especially swelling, and adjust therapy as necessary. Dysphonia: Continue follow-up with ENT regarding the progress post-laser treatment. Weight Management and Lifestyle: Encourage increased physical activity and adherence to a healthy diet. Target weight is approximately 175 lbs. Schedule a complete physical examination and review all lab results in 6 months. 12/29/2024 Encounter for screening for malignant neoplasm of prostate (ICD-10 - Z12.5) Mr. Wheeler is a 54-year-old gentleman with hypertension here for BP f/up. She has lost 14 pounds since his last visit, and her current weight is approximately 216 lbs. He was initially started on tovastatin 10 mg, but experienced significant foot swelling on the first day of use. Plan as follows: Hypertension: Continue lisinopril 20 mg daily. Advise the patient to monitor blood pressure both at home and at work. 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 Hyperlipidemia: Initiate atorvastatin 10 mg at night to manage cholesterol levels. Monitor for any adverse reactions, especially swelling, and adjust therapy as necessary. Dysphonia: Continue follow-up with ENT regarding the progress post-laser treatment. Weight Management and Lifestyle: Encourage increased physical activity and adherence to a healthy diet. Target weight is approximately 175 lbs. Schedule a complete physical examination and review all lab results in 6 months. Plan Of Treatment Pending Test Test Name Order Date Cologuard 05/26/2024 Future Test Test Name Order Date Albumin/Creatinine Ratio,[id number] Lipid Panel-[id number] 12/29/2024 Comp. Metabolic Panel ([id number] 2024 PSA (Serial Monitor)-[id number] 12/29/2024 Next Appt Details Provider Name:Le Espinoza austin, 09/25/2025 09:30:00 AM, [address] [place] [address], [phone], Insurance Providers Payer Name Payer Address Payer Phone Subscriber Number Group Number Insured Name Patient Relationship to Insured Coverage Start Date Coverage End Date [employer] [facility] [address] [address] [place] [address] [id number] Bernard Wheeler Self - patient is the insured Medical (General) History Medical History History ICD Code hypertension pre-cancerous keratosis in the throat- [facility]
--- OUTSIDE RECORDS SUMMARY | 2025-09-10 08:21 | XMS_ITS | Data Portability ---
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 We will try to get his CT at [facility] where he works. We discussed that the lesions of the buccal mucosa are New Site granules. These were present ectopic sebaceous tissue. No need for concern. I will see him following radiation therapy smooth Not available 07/16/2024 13:59:37 05/27/2025 05/27/2025 1. 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 Surveillance will continue through regular follow-ups to identify any recurrence or new symptoms. Alternate follow-up with PA 2. Alcohol Use The patient continues to consume alcohol socially, maintaining a consistent pattern of three drinks per week. No immediate interventions are planned, but continued caution was emphasized and cessation recommended. 3. Snoring The increase in snoring may relate to alcohol consumption and anatomical predispositions such as a large tongue. While a sleep study was not pursued, monitoring of symptoms and feedback from co-habitants is advised to track for potential obstructive sleep apnea symptoms. He declined sleep study smooth Not available 05/27/2025 11:34:58 Plan of Treatment Reminders Order Date Submit Date Provider Last Modified By Organization Details Last Modified Time Details Appointments None recorded. Lab None recorded. Referral speech therapy referral - Referral for speech therapy. Thank you. 2023 024 [email or web address] 2 [facility], [address] [place] [address] [place], [address], 11:21:47 Procedures None recorded. Surgeries laryngoscop y, direct, operative, with excision of tumor and/or stripping of vocal cords or epiglottis (SURG) 2023 024 [email or web address] [id number] Not available 11:43:44 Imaging None recorded. Medication Orders None recorded. Patient TargetsNo targets recorded. Patient Instructions Encounter Date Encounter Id Patient Instructions Last Modified By Organization Details Last Modified Time 02/23/2025 [id number] Patient appears to have good results following radiation therapy for malignant laryngeal tumor. He has some residual hoarseness but things are much improved. There is moderate edema of the true and false vocal folds. We discussed the need to avoid clearing his throat and drink small sips of water. Continue to avoid tobacco and suggest avoidance of alcohol to reduce the risk of recurrence. Follow-up 3 months smooth Not available 02/23/2025 11:40:58 05/27/2025 [id number] Please note: Parts of this encounter note have been generated by AI based on audio conversation. Patient consent was required prior to utilizing this technology. Content review was required prior to finalizing the note. smooth Not available 05/27/2025 11:32:10 Reason for Referral Referral for speech therapy. Thank you. Referring Physician: Jourdan Velez, Otolaryngology, Encounter Date: 06/12/2024 Results Created Date Observation Date Name Description Value Unit Range Abnormal Flag Note LastModifiedBy Organization Detail LastModifiedTime 06/17/20 24 fluor oscop y evalu ation (PROC ) No observ ation record ed. [email or web address] Not Available 09:54:50 07/21/2007/08/2024 clini gavino photo * No observ ation record ed. [email or web address] Not Available 06/27 11:24:28 07/23/20 24 07/22/2024 CT, neck, soft tissu e, w/ contr ast No observ ation record ed. [facility] (Medical Records) [address] [place], [address], 07/23/2024 16:46:11 09/17/20 24 09/17/2024 CT, angio gram, head, w/wo contr ast No observ ation record ed. [facility] (Medical Records) [address] [place], [address], 09/18/2024 17:01:42 Result Notes None recorded. 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 JOURDAN LAY MD [address] [address], [place], [address], [facility] - [facility] 4 11:15:28 Mucocele of salivary gland 70984207 Active 2023 JOURDAN LAY MD [address] [address], [place], [address], [facility] - [facility] 4 11:18:46 Malignant neoplasm of larynx 018979722 Active 2023 JOURDAN LAY MD [address] [address], [place], [address], [place] - [facility] 4 12:00:43 Handy spots of buccal mucosa 971661042 Active 2023 JOURDAN LAY MD [address] [place], [place] [place], [address], [place] - [facility] 4 14:00:26 Abnormal findings on diagnostic imaging of skull and head 419726032 Active 2023 JOURDAN LAY MD [address] [place], [place], [address], [place] [facility] 4 12:58:57 Edema of larynx following radiotherap y 472388472 Active 2024 J[facility]DAN LAY MD [address] [facility] [place], [place] [place], [address], [place] - [facility] 5 11:39:52 Snoring 66203221 Active 2024 JOURDAN LAY MD [address] [facility] [place], [place] [place], [address], [place] [facility] 5 11:34:48 Problem Notes None recorded. Procedures Surgical History Date Name Laterality Status Provider Name and Address Organization Details Recorded Time 05/27/20 25 Fiberoptic Laryngoscopy (Comprehensive) completed JOURADN VELEZ MD 100 [facility],[address], [address], [place] - [facility] 05/27/2025 11:33:02 02/24/20 25 Fiberoptic Laryngoscopy (Comprehensive) completed JOURDAN VELEZ MD 100 [facility],[address] [address], [place], [address], [place] [facility] 02/23/2025 11:39:31 06/12/20 24 Fiberoptic Laryngoscopy (Comprehensive) completed JOURDAN VELEZ MD [address] [facility] [place],[address] [address], [place], [address], [place] [facility] 06/12/2024 11:15:15 Imaging Results None recorded. Procedure Notes None recorded. Medical Equipment None Reported. Allergies Allergen ID Allergen Name Allergen Category Reaction Reaction Severity Criticality Documentation Date Start Date Code Code System Note Provider Name and Address Organization Details Recorded Time 482073 lisinopri l medicatio n cough Not available Not available 06/12/2024 73519 RxNorm Laurie vuong [place] - [facility] 11:29:45 Medications Name Sig Start Date Stop Date Status Note LastModified by Organization Details LastModified Time atorvastatin 10 mg tablet TAKE 1 TABLET BY MOUTH EVERY DAY FOR 30 DAYS active Not Available Not Available No t Available lisinopril 20 mg tablet TAKE 1 TABLET BY MOUTH EVERY DAY active Not Available Not Available No t Available amlodipine 5 mg tablet TAKE 1 TABLET BY MOUTH EVERY DAY 02/23 completed Not Available Not Available Not Available prochlorperaz ine maleate 10 mg tablet TAKE 1 TABLET BY MOUTH THREE TIMES A DAY NEEDED FOR NAUSEA 02/23 completed Not Available Not Available Not Available famotidine 20 mg tablet TAKE 1 TABLET BY MOUTH EVERY DAY 02/23 completed Not Available Not Available Not Available amlodipine 10 mg tablet TAKE 1 TABLET BY MOUTH EVERY DAY FOR 30 DAYS 02/23 completed Not Available Not Available Not Available lisinopril 10 mg tablet TAKE 1 TABLET BY MOUTH EVERY DAY 02/23 completed Not Available Not Available Not Available losartan 25 mg tablet 02/23 completed Not Available Not Available Not Available naproxen 500 mg tablet TAKE 1 TABLET BY MOUTH TWICE A DAY 02/23 completed Not Available Not Available Not Available oxycodone 5 mg tablet TAKE 1 TABLET BY MOUTH EVERY 6 TO 8 HOURS NEEDED FOR PAIN 02/23 completed Not Available Not Available Not Available rosuvastatin 20 mg tablet TAKE 1 TABLET BY MOUTH EVERY DAY 02/23 completed Not Available Not Available Not Available Vitals Date Recorded Body height Provider Name an d Address Organization Details Last Updated DateTime 02/23/2025 170.18 cm Laurie Espinosa [place] - [facility] 02/23/2025 11:25:40 Date Recorded Body weight Body mass index (BMI) Body height Provider Name and Address Organization Details Last Updated DateTime 07/16/2024 24861.95 g 33.8 kg/m2 170.18 cm Tyrone Jamil [place] - [facility] 07/16/2024 13:44:19 Social History None recorded. Functional Status None recorded. Mental Status None recorded. Family History Nothing Reported. Medical History Condition Response Hypertension Y Past Encounters Encounter ID Performer Location Encounter Start Date Encounter Closed Date Diagnosis/Indication Diagnosis SNOMED-CT Code Diagnosis ICD10 Code Diagnosis IMO Codes Diagnosis Note [id number] JOURDAN HEAD MD [facility] [address] [place] [address] 06/12/2024 10:39:34 06/12/2024 11:22:53 Impacted cerumen in right ear 9132498550 476851 H61.21 Suggested 3 drops distilled vinegar in each ear twice weekly to prevent the build up of cerumen Chronic hoarseness 06704 76529 105 R49.0 Leukoplaki a of vocal cords 33817431 J38.3 Patient with several months of hoarseness . Examinatio n showed severe vocal hyperfunct ion with evidence of hyperkerat osis of the true vocal folds right greater than left. There is no ulceration . He has been a non-smoker for 20+ years. Suggest speech therapy evaluation and a an exam under anesthesia for biopsy. He understand s the goal is to make sure there is no malignancy as opposed to improvemen t of his voice. Hopefully we will be able to his improve his voice as well. We discussed the risks, benefits and alternativ es to direct laryngosco py as well as the procedure itself. The surgical risks, including, though not limited to, bleeding, infection, perforatio n of the pharynx/es ophagus, pneumothor ax, mediastini tis and airway obstructio n, sepsis and were discussed. We also spoke about the risks of dental, lip and gum injuries as well as tongue swelling, numbness, taste alteration (temporary or permanent) and taste disturbanc e that can occur due to retractor use during surgery, anesthesia -related dental injury, uvula injury and laryngospa sm. Mucocele o f salivary gland 66476663 K11.6 Appears to be a small mucocele of the right hard palate. If it does not resolve spontaneou sly we can consider removal [id number] JOURDAN HEAD MD [facility] [address] [address] 07/16/2024 13:37:59 07/16/2024 15:46:17 Handy spots of buccal mucosa 593073604 Q38.6 Malignant neoplasm of larynx 264196920 C32.0 Patient with malignant squamous cell carcinoma involving the right true vocal fold and anterior commissure .Suggest CT scan of neck with contrast and radiation oncology appointmen t All questions answered Chronic hoarseness 27488 20372 105 R49.0 [id number] JOURDAN HEAD MD [facility] [address] [place] [address] 02/23/2025 11:04:47 02/23/2025 11:42:12 Malignant neoplasm of larynx 011800893 C32.0 Edema of l arynx following radiotherapy 880469514 J95.89 [id number] JOURDAN HEAD MD [facility] [address] [address] 05/27/2025 10:47:25 05/27/2025 11:36:27 Chronic hoarseness 8635898355 105 R49.0 Edema of l arynx following radiotherapy 760329233 J95.89 History of malignant neoplasm of larynx 903249023 Z85.21 4511886 Snoring 57298475 R06.83 90751 Health Concerns Section Related Observation LastModified by Organization Detai ls LastModified Time None Recorded Concern Status LastModified by Organization Details LastModified Time None Recorded Advance Directives Directive None Recorded Payers Insurance Date Sequence Insurance Name Policy Number Policy Luna Covered Member ID Luna Member ID Guarantor Name 05/27/2025 1 [employer] 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 He reports prior to developing significant hoarseness globus sensation and chronic barium swallow was negative. The cough has resolved. He was drinking a fair amount of apple cider vinegar which he has stopped. This has not changed his voice symptoms. He still notes significant hoarseness and raspiness. Patient denies shortness of breath he notes just reduced lung capacity with sleeping. No eating, drinking or swallowing difficulties. Still feels a sensation of postnasal drip and phlegm in his throat JOURDAN VELEZ MD [address] [facility] [place] [address] [place] [address], [phone], [facility] - [facility] 06/12/2024 11:20:10 07/16/2024 text/html Patient seen in follow-up for laryngeal biopsy revealing squamous cell carcinoma. He is concerned about lesions in his buccal mucosa. He has had no pain or ulceration. JOURDAN VELEZ MD [address] [facility] [place] [address] [place] [address], [phone], [facility] - [facility] 07/16/2024 14:01:25 02/23/2025 text/html Patient with history of squamous cell carcinoma stage one of the right true vocal fold and anterior commissure status post radiation therapy completed August 2024. Overall doing well voice has improved. No eating, drinking or swallowing difficulties occasional globus sensation and irritation. Non-smoker for at least 20 years. 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 He completed his treatment on September 18 with subsequent post-treatment effects including a raspy voice and throat thickening. Non-smoker with social alcohol. Previously discussed risks of alcohol Additionally, he reports experiencing increased snoring, with unchanged alcohol consumption patterns of three margaritas weekly. No apparent sleep apnea symptoms were noted JOURDAN VELEZ MD [address] [facility],[place] [facility], [place], [address], [facility] - [facility] 05/27/2025 11:35:19
[2025-09-10 09:16] LABS: Alanine Aminotransferase 33 U/L (0-40); Albumin Level 4.8 g/dL (3.5-5.0); Alkaline Phosphatase 62 U/L (39-117); Anion Gap 14 (12-20); Aspartate Amino Transferase 72 U/L (5-37); Blood Urea Nitrogen 14 mg/dL (9-16); Calcium 9.6 mg/dL (8.4-10.2); Carbon Dioxide 28 mmol/L (22-29); Chloride 103 mmol/L (96-108); Cholesterol 170 mg/dL (<200); Estimated Glomerular Filt Rate > 60; HDL Cholesterol 63 mg/dL (>40); Potassium 4.5 mmol/L (3.3-5.1); Sodium 140 mmol/L (135-145); Total Protein 7.2 g/dL (6.5-8.0); Triglycerides 75 mg/dL (<150)
[2025-09-10 09:39] LABS: Prostate Specific Antigen 1.04 ng/mL (<0.05-4.0)
[2025-09-10 10:48] LABS: Microalbum/Creatinine Ratio Ur 5.2 ug/mg cr (<30)
== END 2025-09-10 08:13 | disposition home or self-care (01) ==
LOC: HO.LAB 08:12
PROVIDERS: PCP Hospitalist; Visit Provider Hospitalist
DX: I10 Essential (primary) hypertension (principal); Z12.5 Encounter for screening for malignant neoplasm of prostate
CPT/HCPCS: 36415; 80053; 80061; 82043; 82570; 84153

== ENCOUNTER 2025-10-13 07:11 | Outpatient (REF) | payer OTHER, SELFPAY ==
[2025-10-13 07:31] LABS: MANUAL DIFF FLAG NO
[2025-10-13 07:52] LABS: Hematocrit 45.0 % (42.0-52.0); Hemoglobin 14.6 g/dl (14.0-18.0); Imm Gran Abs Auto 0.07 X10*3/uL (0.00-0.03); Imm Gran Pct Auto 1.2 % (0.0-0.4); Lymphocytes Absolute Auto 1.4 X10*3/uL (1.2-4.9); Mean Corpuscular HGB Conc 32.4 g/dl (31.0-36.0); Mean Corpuscular Hemoglobin 30.2 pg (27.0-33.0); Mean Corpuscular Volume 93.2 fL (80.0-98.0); NRBC Abs Auto 0.000 X10*3/uL (0.0-0.012); NRBC Pct Auto 0.0 /100WBC (0.0-0.2); Platelet Count 247 X10*3/uL (160-400); Red Blood Count 4.83 X10*6/uL (4.60-5.80); White Blood Count 5.7 X10*3/uL (4.8-10.8)
[2025-10-13 08:15] LABS: Aspartate Amino Transferase 19 U/L (5-37)
[2025-10-13 08:40] LABS: HBS Num1 16.70 mIU/mL (0-7.99); HBc Num1 0.04 S/CO (0.00-0.79); HBsAGNum1 0.43 S/CO (0.00-0.99); Hepatitis A Antibody IgM 0.23 Index (0-0.79); Hepatitis B Surface Antigen Negative (Negative); ~HepC Num1 0.08 S/CO (0.00-0.79); ~Hepatitis A Antibody IgM Nonreactive (Nonreactive); ~Hepatitis B Surface Antibody REACTIVE (Nonreactive); ~Hepatitis C Antibody Nonreactive (Nonreactive)
[2025-10-16 07:55] LABS: ~Hepatitis A Antibody IgG 0.13 S/CO (0.00-0.99)
[2025-10-16 08:50] LABS: Hepatitis A Antibody IgM 0.15 Index (0-0.79); ~Hepatitis A Antibody IgM Nonreactive (Nonreactive)
== END 2025-10-13 07:12 | disposition home or self-care (01) ==
LOC: HO.LAB 07:11
PROVIDERS: PCP Hospitalist
DX: R74.01 Elevation of levels of liver transaminase levels (principal)
CPT/HCPCS: 36415; 83615; 84450; 85025; 86015; 86381; 86704; 86706; 86708; 86709; 86803; 87340; 87350

== ENCOUNTER 2025-11-04 09:09 | Outpatient (REF) | payer OTHER, SELFPAY ==
--- NOTE | ~2025-11-04 | US_ITS ---
EXAMINATION: US ABDOMEN LIMITED CLINICAL INFORMATION: LFTs. COMPARISON: Correlated to CT dated December 05, 2018. TECHNIQUE: Real-time ultrasound right upper quadrant abdomen using grayscale technique. Limited exam. FINDINGS: PANCREAS: No peripancreatic fluid collections. LIVER: Liver measures 13 cm per generation technologist. No nodular surface. Normal echotexture. No solid or cystic lesion. No intrahepatic biliary ductal dilatation. GALLBLADDER: Fluid-filled nondistended. No pericholecystic fluid collection or gallbladder wall thickening. COMMON BILE DUCT: 2 mm. RIGHT KIDNEY: 11 cm. Normal echotexture. Renal cortical thickness is normal. No hydronephrosis. No solid or cystic lesion FREE FLUID: None. US/US abdomen limited IMPRESSION: Normal exam. Electronically signed by: Lalo Anaya MD 11/04/2025 09:59 AM EST
== END 2025-11-04 09:10 | disposition home or self-care (01) ==
LOC: HO.US 09:09
DX: R74.01 Elevation of levels of liver transaminase levels (principal)
CPT/HCPCS: 76705

== ENCOUNTER → 2025-11-04 09:44 | Outpatient (BNV) | payer OTHER, SELFPAY | PROVIDERS: Visit Provider Radiology Diagnostic Radiology | DX: R94.5 Abnormal results of liver function studies (principal) | CPT/HCPCS: 76705 ==